=== PATIENT | male | born 1935 | race Caucasian/White ===

== ENCOUNTER → 2016-10-25 | Outpatient (CLI) | payer OTHER ==
[~2016-10-25] MED LIST: AMBIEN10 M1 PO; AMBIEN10 MG PO; AMBIEN5 MG PO; AUGMENTIN 875 M1 TA1 PO; AUGMENTIN 875 M1 TAB PO; BENAZEPRIL40 MG PO; BETAPACE80 MG PO; CARDIZEM90 MG PO; CLARITIN10 MG PO; COUMADIN2.5 M1 PO; FINASTERIDE5 MG PO; METOPROLOL SR50 MG PO; METOPROLOL50 MG PO; MIRAPEX0.5 MG PO; MULTI VITAMINS1 TAB PO; PRAMIPEXOLE DIHY1 MG PO; PRAVACHOL40 MG PO; SERTRALINE HYDR50 MG PO; TRAZODONE100 MG PO; Vicodin 5/500 505 MG PO; ZOLOFT
== END | disposition home or self-care (01) ==
LOC: CARD 10-24 15:00
DX: I35.0 Nonrheumatic aortic (valve) stenosis (principal); I47.2 Ventricular tachycardia; I48.0 Paroxysmal atrial fibrillation; I07.1 Rheumatic tricuspid insufficiency; Z95.810 Presence of automatic (implantable) cardiac defibrillator; Z98.890 Other specified postprocedural states